=== PATIENT | male | born 1935 | race Caucasian/White ===

== ENCOUNTER 2020-03-13 10:39 | Emergency (ER) | payer OTHER, SELFPAY ==
[2020-03-13 11:31] VITALS: BP 205/94; PULSE 65; RESP 18; TEMP 36.6; O2SAT 96; BMI 27.3
--- NOTE | 2020-03-13 12:28 | XR_ITS ---
WS: [id number] LUMBAR SPINE: 3 VIEWS TECHNIQUE: AP, lateral and L5-S1 spot. HISTORY: back pain COMPARISON: None available. L4 anterolisthesis by 5.5 mm. No fractures. Mild osteopenia. Moderate facet joint arthritis at L4-5 a nd L5-S1. Moderate degenerative disc space narrowing and desiccation at L5-S1. Endplate hypertrophic osteophyte s at all levels. SI joints are symmetric bilaterally. No soft tissue abnormalities. Calcification within the aorta. Mild dilatation of aorta up to 3.3 cm. XR/XR lumbar spine 2-3V* [id number] IMPRESSION: 1. No lumbar spine fracture. 2. L4 anterolisthesis by 5.5 mm. 3. 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 4. No aortic aneurysmal dilatation to 3.3 cm.
--- NOTE | 2020-03-13 12:40 | XR_ITS ---
WS: [id number] Exam: XR pelvis 1-2V* [id number] Date/Time of Exam: 03/13/2020 12:40 PM Reason For Exam: rt posterior hip pain No acute fracture. Moderate degenerative change of both hips. DJD of the SI joints. No sign of bone d estruction. XR/XR pelvis 1-2V* [id number] IMPRESSION: 1. No pelvic fracture or bone destruction. 2. Moderate DJD of both hips.
--- NOTE | 2020-03-13 12:41 | ED_ITS ---
HPI - Back Pain/Injury General: Chief Complaint: Back Pain/Injury Stated Complaint: Pain in lower right back/hip Time Seen by Provider: 03/13/20 12:28 Source: patient Mode of arrival: ambulatory Limitations: no limitations History of Present Illness: HPI Narrative: 84-year-old male patient presents to the emergency department with complaints of right posterior hip pain. He rep orts his [place] Yañez jumped on the door that he was opening causing him to sustain a near fall on 03/08/2020. He reports right posterior hip hit and hard object stopping his fall. He reports pain with bending and twisting. States pain is not improving. He denies radiculopathy symptoms or weakness of the bilateral lower extremities. MD elicited complaint: other (near fall) Timing: intermittent Quality: sharp and aching Location: lumbar spine and right lower back Radiation: none Exacerbating factors: movement Relieving factors: immobilization Context: fall (Near fall) Associated symptoms: Reports no associated symptoms; Deny abdominal pain, chills, difficulty walking, dysuria, fever(s), nausea or vomiting Treatments prior to arrival: cold therapy, heat therapy and NSAIDS Work related injury: No Review of Systems General: Reports: 10 or more systems reviewed and unremarkable except in HPI and below Const: Denies: fever(s), chills or diaphoresis Eyes: Denies: blurry vision or eye redness ENMT: Denies: throat pain, dental pain or disequilibrium Card: Denies: chest pain, palpitations or irregular heart rhythm Resp: Denies: dyspnea, productive cough, non-productive cough or wheezing GI: Denies: abdominal pain, nausea or vomiting : Denies: dysuria Musc: Reports: other (Pain right posterior hip); Denies: neck pain, back pain, muscle cramps or muscle weakness Skin/Breast: Denies: rash or pruritus Neuro: Denies: headache(s), numbness in extremities, weakness in extremities, difficulty walking, confusion or behavioral changes Psych: Denies: anxiety or depression Christoph/Lymph: Denies: easy bruising Physical Exam Const: COMMON NORMALS: no acute distress, patient oriented x3, healthy appearing and alert GENERAL APPEARANCE: cooperative, comfortable and well hydrated HENMT: COMMON NORMALS: normocephalic, Normal external nose present and moist oral mucous membranes HEAD & SCALP: normocephalic NOSE: Normal external nose present Eye: COMMON NORMALS: Equal, round and reactive pupils present and EOMs intact bilaterally GENERAL EYE: appearance normal, both eyes and all related structures PUPIL: Yes Equal, round and reactive pupils present Neck/C-Spine: COMMON NORMALS: full ROM and no lymphadenopathy GENERAL: Yes normal visual inspection and Yes trachea midline CERVICAL SPINE: Yes cervical ROM normal Lymph: LYMPHATIC: no lymphadenopathy noted Chest: COMMONS NORMALS: normal inspection of the chest Resp: COMMON NORMALS: normal respiratory effort and clear to auscultation bilaterally AUSCULTATION: clear to auscultation bilaterally Cardio: COMMON NORMALS: regular rhythm, S1 normal heart sound present and S2 normal heart sound present RHYTHM: regular rhythm HEART SOUNDS: S1 normal heart sound present and S2 normal heart sound present GI: COMMON NORMALS: Soft to palpation and non-tender INSPECTION: Yes normal to inspection PALPATION: Yes Soft to palpation : COMMON NORMALS: Yes no CVA tenderness BLADDER/KIDNEY EXAM: Yes no CVA tenderness Back/Pelvis: COMMON NORMALS: no CVA tenderness, thoracic and lumbar spine normal to inspection, no thoracic nor lumbar tenderness and thoraco-lumbar ROM normal THORACIC SPINE/UPPER BACK: No thoracic spinal tenderness LUMBAR SPINE/LOWER BACK: No lumbar spinal tenderness and Yes straight leg raise positive right SACROILIAC JOINTS: Yes SI joint(s) abnormal SI joint details: tender to palpation (Right) SACRUM: no ecchymosis COCCYX: no swelling Extremity: COMMON NORMALS: normal to inspection and capillary refill normal Neuro: COMMON NORMALS: patient oriented x3 and no focal motor deficits SENSORIUM/ORIENTATION: Yes alert SPEECH: speech normal GAIT: Yes Normal gait present MOTOR EXAM: 5/5 motor strength present throughout Psych: COMMON NORMALS: mental status grossly normal, Normal thought process present, cooperative, normal affect, speech normal and activity/motor behavior normal ACTIVITY/MOTOR BEHAVIOR: Yes appropriate eye contact SPEECH: Yes normal speech THOUGHT PROCESS: Normal thought process present Skin: COMMON NORMALS: no rashes or lesions noted and turgor normal GENERAL SKIN EXAM: no rashes or lesions noted and turgor normal Course Vital Signs: Vital signs: Vital Signs Temperature 97.9 F 03/13/20 11:31 Pulse Rate 71 03/13/20 13:32 Respiratory Rate 14 03/13/20 13:32 Blood Pressure 166/92 03/13/20 13:32 Pulse Oximetry 95 03/13/20 13:32 MDM - Back Pain/Injury Imaging Data^: Xray Ortho: Radiologist's impression: [facility] [address] [place] [id number] XRay Report Signed Patient: Cristian Rodriguez Unit #: [id number] : 1935 Age/Sex: 84 / M ADM Date: 03/13/20 Loc: ER Room/Bed: Attending Dr: Ordering Provider/Ordering MD: Bertha Fuentes Date of Service: 03/13/20 Procedure(s): XR pelvis 1-2V* [id number] Accession Number(s): [id number] Report Number: [id number] WS: [id number] Exam: XR pelvis 1-2V* [id number] Date/Time of Exam: 03/13/2020 12:40 PM Reason For Exam: rt posterior hip pain No acute fracture. Moderate degenerative change of both hips. DJD of the SI joints. No sign of bone destruction. XR/XR pelvis 1-2V* [id number] IMPRESSION: 1. No pelvic fracture or bone destruction. 2. Moderate DJD of both hips. Dictated By: Good Palma DO Signed By: Good Palma DO Signed Date/Time: 03/13/20 1256 DD/ 1255 Other Imaging: Radiologist's impression: [facility] [address] [place] [id number] XRay Report Signed Patient: Cristian Rodriguez Unit #: [id number] : 1935 Ac ct#:[id number] Age/Sex: 84 / M ADM Date: 03/13/20 Loc: ER Room/Bed: Attending Dr: Ordering Provider/Ordering MD: Bertha Fuentes Date of Service: 03/13/20 Procedure(s): XR lumbar spine 2-3V* [id number] Accession Number(s): [id number] Report Number: [id number] WS: [id number] LUMBAR SPINE: 3 VIEWS TECHNIQUE: AP, lateral and L5-S1 spot. HISTORY: back pain COMPARISON: None available. L4 anterolisthesis by 5.5 mm. No fractures. Mild osteopenia. Moderate facet joint arthritis at L4-5 and L5-S1. Moderate degenerative disc space narrowing and desiccation at L5-S1. Endplate hypertrophic osteophytes at all levels. SI joints are symmetric bilaterally. No soft tissue abnormalities. Calcification within the aorta. Mild dilatation of aorta up to 3.3 cm. XR/XR lumbar spine 2-3V* [id number] IMPRESSION: 1. No lumbar spine fracture. 2. L4 anterolisthesis by 5.5 mm. 3. 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 4. No aortic aneurysmal dilatation to 3.3 cm. Dictated By: Ronel Lizarraga DO Signed By: Ronel Lizarraga DO Signed Date/Time: 03/13/20 1259 Discharge Plan Discharge Patient Disposition: Home Clinical Impression: Contusion of lower back and pelvis, initial encounter Strain of lumbar region Qualifiers: Encounter type: initial encounter Qualified Code(s): S39.012A - Strain of muscle, fascia and tendon of lower back, initial encounter Condition: Stable Discharge Orders: Discharge ED (Routine); Ordered 03/13/20 Ordered By: Bertha Fuentes Referrals: Blake Chaudhary [Primary Care Provider] - Discharge Diet: Usual diet Discharge Activity: Limit activity as instructed Patient Instructions: Low Back Strain (ED), Acute Low Back Pain (ED), Contusion in Adults (ED) Activity Restrictions/Additional Instructions: Return to the emergency department if you develop inability to feel your leg, leg weakness or worsening pain Cool compresses alternate with warm moist heat several times daily to the affected area to help with pain Take Tylenol or ibuprofen as needed to help with pain Follow-up with your primary care provider this week for further evaluation as further testing may be needed Coding Level of Care Code 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
[2020-03-13 13:32] VITALS: BP 166/92; PULSE 71; RESP 14; O2SAT 95
== END 2020-03-13 14:17 | disposition home or self-care (01) ==
PROVIDERS: Emergency Provider Nurse Practitioner Family; PCP Family Medicine
DX: S30.0XXA Contusion of lower back and pelvis, initial encounter (principal); S39.012A Strain of muscle, fascia and tendon of lower back, initial encounter; W18.40XA Slipping, tripping and stumbling without falling, unspecified, initial encounter
CPT/HCPCS: 12345; 72100; 72170; 99281; 99282

== ENCOUNTER 2020-12-28 13:44 | Outpatient (CLI) | payer OTHER, SELFPAY ==
--- NOTE | 2020-12-28 13:50 | CT_ITS ---
WS: [id number] CT CHEST TECHNIQUE: Contrast enhanced CT of the chest with coronal and sagittal reformatted images. CLINICAL INFORMATION: IRREGULAR CHEST XRAY FOLLOW UP COMPARISON: None. DLP: 866.[address] scans at [facility] use at least one of these dose optimization techniques: automated e xposure control; mA and/or kV adjustment per patient size (includes targeted exams where dose is matc hed to clinical indication); or iterative reconstruction. FINDINGS: Cardiomegaly. Cardiac pacer. Both lungs are well aerated. No acute pulmonary infiltrates. Mild chroni c emphysematous changes. No focal pneumonia or pleural fluid. Small patchy opacity in the right middl e lobe nonspecific but likely infectious or inflammatory. Recommend 3 month follow-up. This measures approximately 10 mm. Well-circumscribed low-attenuation lesion in the anterior mediastinum anterior to the thoracic aorta measuring 1.7 x 3.5 x 6.3 cm AP by transverse by craniocaudal. Hounsfield units consistent with cysti c contents. Normal caliber thoracic aorta. Slightly ectatic ascending thoracic aorta measuring 4.0 cm . Normal caliber descending thoracic aorta. Coronary calcification. No mediastinal or hilar lymphaden opathy. No axillary lymphadenopathy. Diffuse fatty infiltration the liver. 10 mm low-attenuation lesion in the dome of the liver likely he patic cyst or hemangioma but technically indeterminant. Additional faint low-attenuation lesion in th e tip of the right hepatic lobe measuring 11 mm. Small esophageal hiatal hernia. Adrenal glands are n ormal. Fatty atrophy of the pancreas. CT/CT chest w con* [id number] IMPRESSION: 1. Mild chronic emphysematous changes. No focal pneumonia or pleural fluid. 2. Slight hazy groundglass opacity in the right middle lobe measuring 10 mm. T his is nonspecific but most likely infectious or inflammatory in etiology. Issa mmend 3 month follow-up. 3. Well-circumscribed low-attenuation cystic lesion in the anterior mediastinu m anterior to the thoracic aorta measuring 1.7 x 3.5 x 6.3 cm. Differential con siderations include thymic cyst, pericardial cyst, or cystic thymoma. No enhanc ing septations or solid components. RECOMMEND 3 MONTH FOLLOW-UP CONTRAST-ENHANC ED CHEST CT TO CONFIRM STABILITY. 4. Diffuse fatty infiltration liver. 5. Low-attenuation lesions in the liver measuring 10 11 mm nonspecific but lik anuel hepatic cyst or small cavernous hemangiomas. This would be better evaluated with CONTRAST-ENHANCED CT ABDOMEN PELVIS WITH LIVER PROTOCOL. 6. Slightly ectatic ascending thoracic aorta measuring 4.0 CM.
[2020-12-28] MEDS: iohexol 300 mg/mL 100 mL Btl IV (14:12)
== END 2020-12-28 13:45 | disposition home or self-care (01) ==
PROVIDERS: PCP Family Medicine; Visit Provider Family Medicine
DX: R93.89 Abnormal findings on diagnostic imaging of other specified body structures (principal); I77.810 Thoracic aortic ectasia; K76.0 Fatty (change of) liver, not elsewhere classified
CPT/HCPCS: 71260; Q9967

== ENCOUNTER 2021-02-13 10:13 | Outpatient (CLI) | payer OTHER, SELFPAY ==
--- NOTE | 2021-02-13 10:19 | CT_ITS ---
WS: [id number] CT ABDOMEN PELVIS TECHNIQUE: Contrast-enhanced CT of the abdomen and pelvis with coronal and sagittal reformatted image s. CLINICAL INFORMATION: LESION ON LIVER COMPARISON: CT chest December 28, 2020 DLP: 1461.[address] scans at [facility] use at least one of these dose optimization techniques: automated e xposure control; mA and/or kV adjustment per patient size (includes targeted exams where dose is matc hed to clinical indication); or iterative reconstruction. FINDINGS: Mild diffuse fatty infiltration liver. Normal portal vein and splenic vein. A few low-attenuation les ions in the liver likely hepatic cysts or cavernous hemangiomas largest measuring 13 mm. A few of the se are tiny and too small to characterize. Small esophageal hiatal hernia. Adrenal glands are normal. Normal renal parenchymal enhancement. No h ydronephrosis. Small bilateral renal cysts. Normal spleen. Fatty atrophy of the pancreas. Vascular ca lcification. Lung bases are well aerated. Normal caliber abdominal aorta. Slightly aneurysmal infrare nal abdominal aorta measuring 2.8 x 2.7 CM. Fat-containing right inguinal hernia. Heterogeneous enlarged prostate measuring 3.4 x 4.9 CM. Pelvic phleboliths. Normal sigmoid colon. Sigmoid diverticulosis. No evidence of acute diverticulitis. No periaortic or retroperitoneal lymphadenopathy. No pelvic or inguinal lymphadenopathy. Slight grade 1 anterolisthesis L4 on L5. Disc space narrowing throughout the lumbar spine. CT/CT abdomen pelvis w con* [id number] IMPRESSION: 1. Diffuse fatty infiltration liver. 2. A few low-attenuation lesions in the liver compatible with incidental hepat ic cysts or benign cavernous hemangiomas. Largest measures 13 mm. No suspicious liver lesions. 3. Normal renal parenchymal enhancement. No hydronephrosis. Tiny incidental re nal cysts. 4. Small esophageal hiatal hernia. 5. Fat-containing right inguinal hernia. 6. Enlarged heterogeneously enhancing prostate with indentation on the bladder . Recommend correlation PSA. 7. Sigmoid diverticulosis. 8. Slightly aneurysmal infrarenal abdominal aorta measuring 2.8 x 2.7 cm.
[2021-02-13] MEDS: iohexol 300 mg/mL 100 mL Btl IV (10:56)
== END 2021-02-13 10:14 | disposition home or self-care (01) ==
LOC: CT 10:16
PROVIDERS: PCP Family Medicine; Visit Provider Family Medicine
DX: K76.9 Liver disease, unspecified (principal); K76.0 Fatty (change of) liver, not elsewhere classified; I71.4 Abdominal aortic aneurysm, without rupture; K57.30 Diverticulosis of large intestine without perforation or abscess without bleeding; N40.0 Benign prostatic hyperplasia without lower urinary tract symptoms; K40.90 Unilateral inguinal hernia, without obstruction or gangrene, not specified as recurrent; K44.9 Diaphragmatic hernia without obstruction or gangrene
CPT/HCPCS: 74177

== ENCOUNTER → 2021-02-22 15:07 | Outpatient (BNVA) | payer OTHER, SELFPAY | PROVIDERS: PCP Family Medicine; Referring Provider Family Medicine; Visit Provider Surgery | DX: Z20.822 Contact with and (suspected) exposure to COVID-19 (principal); K40.90 Unilateral inguinal hernia, without obstruction or gangrene, not specified as recurrent | CPT/HCPCS: 87635 ==

== ENCOUNTER 2021-02-27 07:48 | Day surgery (SDC) | payer OTHER, SELFPAY ==
[2021-02-26 08:58] VITALS: BMI 26.6
[2021-02-27] VITALS (17 sets, daily range): BP systolic 55–177; BP diastolic 32–96; PULSE 60–67; RESP 12–22; TEMP 36.1–37.1; O2SAT 90–99
[2021-02-27] MEDS: acetaminophen 1,000 MG/100 ML PIGGYBACK 400 MG IV (08:30)
[2021-02-27] MEDS: sodium chloride 0.9% 1,000 ML 30 ML IV (08:30)
--- NOTE | 2021-02-27 08:44 | ECG_ITS ---
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 Measurements Intervals [place] Rate: 64 P: 261 [place]: 187 QRS: -85 QRSD: 189 T: 74 QT: 472 QTc: 487 Interpretive Statements ELECTRONIC ATRIAL PACEMAKER ELECTRONIC VENTRICULAR PACEMAKER ABNORMAL RHYTHM ECG INTERPRETATION BASED ON A DEFAULT AGE OF 40 YEARS No previous ECG available for comparison Electronically Signed On 02-28-2021 0:20:44 [employer] by Casie Funk M.D. [id number] f
--- NOTE | 2021-02-27 08:50 | ANES.PREANE2 ---
Pre-Anesthetic Assessment Pre-Anesthetic Assessment: Height/Weight: Height 1.75 m Weight 81.647 kg Temp Pulse Resp BP Pulse Ox 97.7 F 63 18 172/96 98 02/27/21 08:15 02/27/21 08:15 02/27/21 08:15 02/27/21 08:15 02/27/21 08:15 Preop Diagnosis: Recurrent right groin hernia Proposed Procedure: Operation Date: 02/27/21 09:40 Proposed Procedures p Open Right Inguinal Hernia Repair w/ Mesh 77602 K40.91(Right) - Devang Roque MD Was Beta Colin taken within 24 hours: Yes Was Clonidine taken within 24 hours: N/A Last intake: Intake Last Liquid Date 02/27/21 Last Liquid Time 06:00 Last Solid Date 02/26/21 Last Solid Time 21:00 Social: Social History: No alcohol and No tobacco Exam: Pre-Anes Outpt Exam: alert, oriented x 3, clear to auscultation bilaterally and regular rate & rhythm Airway: Submandibular: WNL Cervical ROM: WNL MP: 2 Dentition: False and Partials CV/HEM: CV/HEM: HTN and PVD GI: GI: GERD Metabolic: Metabolic: Hyperlipidemia Anesthetic Plan: ASA status: 3 Anesthesia: General Risk of > 500 ml blood loss (7ml/kg in children): No Meds/Allergies Current Medications: Current Medications Generic Name Dose Route Start Last Admin Trade Name Freq PRN Reason Stop Dose Admin Sodium Chloride 1,000 mls @ 30 ml s/hr 02/27/21 08:15 02/27/21 08:30 Sodium Chloride 0.9% IV 02/28/21 08:14 30 mls/hr .Q24H [place] Administration PFSH Anesthesia PFSH: Social History Smoking and tobacco status: former smoker Data Anesthesia Cardiac Studies: No Data to Display
--- NOTE | 2021-02-27 09:12 | W.PM.OPSUD ---
Surgery/Procedure H&P Update DATE OF PROCEDURE: February 27, 2021 DATE H&P PERFORMED: 02/22/21 H&P UPDATE INFORMATION: I have reviewed H&P completed within last 30 days, I have examined patient prior to procedure and No changes to prior documentation PREOP DIAGNOSIS: Recurrent right groin hernia PRIMARY INDICATION FOR PROCEDURE: The same PLANNED PROCEDURE: Operation Date: 02/27/21 09:40 Proposed Procedures p Open Right Inguinal Hernia Repair w/ Mesh [id number] K40.91(Right) - Devang Roque MD
[2021-02-27] MEDS: lidocaine 2% INJ 20 mL INJECTION (09:50)
--- NOTE | 2021-02-27 11:02 | P.OP_ITS ---
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 Timeout was done verifying the patient's name/date of /planned procedure destination after the procedure, all were in agreement. SCDs confirmed to be functioning, preoperative antibiotics administered per protocol, and beta sally protocol was confirmed. I started with a left groin incision 1-1/2 finger above the inguinal ligament towards the pubic tubercle, used 15 blade knife skin incision , continued to dissect using Bovie to subcutaneous Reji's down to the external oblique aponeurosis, a large right indirect inguinal hernia was identified, external oblique aponeurosis was then incised using a 10 blade knife, after application of 2 hemostats across sides of the fascia and opened it, right ileo-inguinal nerve was safeguard, I managed to dissect and deliver the right spermatic cord out of the wound, and placed a [place] drain for traction and countertraction, I dissected the spermatic cord and the vas deferens is identified and safeguarded ,as I identified a large right inguinal hernia sac , the hernia sac was totally dissected and was pretty scarred down due to previous surgery until I reached the patulous deep inguinal ring, I opened the hernia sac the contents were viable was a sliding component, and I did apply a pursestring suture with 2-0 silk pop off under direct vision were I tied down and the sac went inside the abdominal cavity and I cut the extra sac and sent it for pathology also there was a lipoma of the cord that was excised and sent out for pathology, an extra 2-0 silk was applied at the stump of the sac safeguarding the contents. Attention was now deviated to mesh placement , using polypropylene mesh system was applied tension-free(X large size), a cone was applied at the deep inguinal ring stabilized by silk sutures 2/0, and interrupted 2-0 silk sutures for invagination of the fascia transversalis as it was attenuated. Followed by a sheet of mesh was applied onto the floor of the posterior wall of the right inguinal canal and anchored medially to the pubic tubercle then inferiorly to the underlying surface of the inguinal ligament and superiorly to the internal oblique aponeurosis using some sutures 2/0, both limbs of the mesh encircled the exit of the cord at the deep inguinal ring, and stitched down. The cord maintained to be in good position thorough irrigation of the wound w as done with normal saline and closure of the external oblique aponeurosis was done by O Vicryl, followed by approximation of Reji's fascia by 2-0 Vicryl then 3-0 Vicryl then 4/ Monocryl to close the skin, dressing was then applied in the form of Dermabond. Counts of instruments, sponges and needles were completed at the end of the procedure. Scrotal support was then placed I was present for the whole entire procedure Patient tolerated the procedure well and was taken to the recovery area after extubation I was present for the whole entire procedure
--- NOTE | 2021-02-27 12:37 | SUR.PHASEII ---
patient to room from PACU placed on monitor BP 55/32. Patient complaint of just being sleepy. placed patient in trendelenburg opened fluids and called Dr. Mir. 1215 Dr. mir in BP 77/56. Dr. Mir giving albumin and Calcium. 1230 Patient bp 134/62 and feeling better.
--- NOTE | 2021-02-27 12:52 | SUR.PHASEII ---
Albumin in. Patient blood pressure is know 102/60.
--- NOTE | 2021-02-27 13:21 | ANE.PACU2 ---
Inpatient post-anesthesia follow up: Airway intact: Yes Vital signs: Temperature 97.8 F Pulse Rate 62 Respiratory Rate 17 Blood Pressure 109/68 Pulse Oximetry 98 Oxygen Delivery Me thod Room Air Oxygen Flow Rate 10 Fraction of Inspir ed Oxygen Hydration adequate: Yes Nausea and vomiting: No Pain level: 2 Mental status: Baseline
--- NOTE | 2021-02-27 15:16 | SUR.PREOP ---
pacu nurse stated patient did void while in recovery
== END 2021-02-27 15:16 | disposition home or self-care (01) ==
PROVIDERS: PCP Family Medicine; Visit Provider Surgery
PROC: (CPT 49520; principal; 2021-02-27 09:35)
DX: K40.91 Unilateral inguinal hernia, without obstruction or gangrene, recurrent (principal); D17.6 Benign lipomatous neoplasm of spermatic cord; I10 Essential (primary) hypertension; E78.5 Hyperlipidemia, unspecified; Z87.891 Personal history of nicotine dependence
CPT/HCPCS: 49520; 88302; 88304; 93005; 96365; J0690; J1100; J2405; J2704; J2710; J3010; J3490; J7030; P9041

== ENCOUNTER → 2021-08-22 14:13 | Outpatient (BNVA) | payer OTHER, SELFPAY | PROVIDERS: PCP Family Medicine; Visit Provider Internal Medicine Cardiovascular Disease | DX: I25.10 Atherosclerotic heart disease of native coronary artery without angina pectoris (principal); I71.2 Thoracic aortic aneurysm, without rupture; I10 Essential (primary) hypertension; R06.02 Shortness of breath; E78.5 Hyperlipidemia, unspecified; Z87.891 Personal history of nicotine dependence | CPT/HCPCS: 93005; 99204 ==

== ENCOUNTER 2021-09-07 06:59 | Outpatient (CLI) | payer OTHER, SELFPAY ==
[2021-09-07 07:08] VITALS: BMI 27.4
--- NOTE | 2021-09-07 07:28 | NMCV_ITS ---
NM kane perf SPECT r/s* [id number] Cristian Rodriguez Age: 86 Gender: M : 1935 Exam Date: 09/07/2021 08:37 Ordering Phys: Casie Funk MD ([email or web address]) Technologist: JOSE Figueroa Exam Location: [facility] Indications: DYSPNEA ON EXERTION STRESS TEST [facility] IMAGE PROTOCOL Rest/Stress 1 Lexiscan Day Radiopharmaceutical Dose (mCi) Administration Site Administered by Rest: Tc-99m 10.8 IV JOSE Walters Sestamibi Stress:Tc-99m 32.6 IV JOSE Walters Sestamibi Rest: 07-Sep-2021 60 Discovery 630 Stress: 07-Sep-2021 30 Discovery 630 0.4mg Lexiscan. Images obtained in supine and prone position. SPECT RESULTS Technical Quality: Excellent Raw Data Analysis: Normal Image Corrections: No attenuation or motion correction applied Summed Stress Score: 6 Summed Rest Score: 7 Summed Difference Score: 0 PERFUSION FINDINGS Small to moderate area of moderately decreased tracer uptake was noted in the mid and apical inferior, apical lateral and LV apex. No significant reversibility was noted in these regions. FUNCTIONAL RESULTS (calculated via Gated SPECT) Stress Image LV EF (%): 53 Stress EDV (mL):113 TID: 1 Stress ESV (mL):53 FUNCTIONAL FINDINGS: Segmental wall motion analysis revealing mild hypokinesia of the LV apex IMPRESSIONS 1. Myocardial perfusion imaging revealing small to moderate area of persistent decreased tracer uptake in the inferior and apical regions, suggesting myocardial scarring versus attenuation artifact. 2. Normal LV ejection fraction 53%. 3. LV wall motion analysis revealing mild hypokinesia of the LV apex. 4. Mildly dilated LV cavity with an end-systolic volume of 53 mL. No similar previous studies are available for comparison Dr Casie Funk MD FACC (Electronically Signed) Final Date: 07 September 2021 11:44 S
[2021-09-07] MEDS: regadenoson 0.4 Mg/5 ml Syringe IVP (09:06)
[2021-09-07 09:13] VITALS: BP 138/72; PULSE 62
--- NOTE | 2021-09-07 13:45 | USCV_ITS ---
Cristian Rodriguez Age: 86 Gender: M : 1935 Exam Date: 09/07/2021 09:45 Ordering Phys: Casie Funk MD ([email or web address]) Technologist: Courtney Bianchi Exam Location: [facility] – [place] Indication: PAIRED WITH NM TEST BP: 117 / 80 HR: 65 Rhythm: Sinus Technical Quality: Fair MEASUREMENTS (Male / Female) Normal Values 2D ECHO LV Diastolic Diameter PLAX 4.6 cm 4.2 - 5.9 / 3.9 - 5.3 cm LV Systolic Diameter PLAX 2.4 cm LV Chamber Size 3.4 cm IVS Diastolic Thickness 1.1 cm 0.6 - 1.0 / 0.6 - 0.9 cm IVS Systolic Thickness 1.3 cm LVPW Diastolic Thickness 1.3 cm 0.6 - 1.0 / 0.6 - 0.9 cm LVPW Systolic Thickness 1.7 cm RV Chamber Size 3.4 cm LVOT Diameter 2.1 cm LV Ejection Fraction 2D Teich 78.8 % LV Ejection Fraction MOD 2C 55.1 % LV Ejection Fraction 2C AL 53.4 % LA Diameter 2.5 cm LA Width 3.5 cm LA Height 3.4 cm RA Width 3.1 cm RA Height 3.3 cm Aorta at Sinotubular Diameter 3.5 cm IVC Diameter 1.5 cm M-MODE Aortic Annulus Diameter 4.1 cm LA Ao Ratio MM 0.8 MV E Point Septal Separation 1.0 cm DOPPLER AV Peak Velocity 209.0 cm/s LVOT Peak Velocity 63.0 cm/s AV Area Cont Eq vti 1.3 cm squared AV Area Cont Eq pk 1.1 cm squared MV Area PHT 3.3 cm squared Mitral E to A Ratio 0.8 MV E' Velocity 94.0 cm/s Mitral E to LV E' Septal Ratio 15.5 TR Peak Velocity 228.8 cm/s TR Peak Gradient 20.9 mmHg TR Mean Velocity 172.2 cm/s TR Mean Gradient 13.0 mmHg TR Velocity Time Integral 64.0 cm Right Atrial Pressure 3.0 mmHg Pulmonary Artery Systolic Pressu 23.9 mmHg PV Peak Velocity 77.0 cm/s RV Acceleration Time 0.1 s RV Ejection Time 0.3 s RV AcT/ET 0.3 FINDINGS Left Ventricle Normal left ventricular size with borderline low ejection fraction of 50%. Mild hypokinesis of the LV apex.abnormal septal motion consistent with conduction abnormality. Grade I/IV diastolic dysfunction (abnormal relaxation filling pattern), normal to mildly elevated filling pressures. Right Ventricle The right ventricle is normal in size and function. Right Atrium The right atrium is normal in size. Left Atrium The left atrium is normal in size. Mitral Valve Thickened mitral valve. Aortic Valve Thickened aortic valve. Trace aortic valve regurgitation. Features of aortic valve sclerosis Tricuspid Valve Trace tricuspid valve regurgitation. Pulmonic Valve No gross abnormalities noted Pericardium Normal pericardium without effusion. Aorta Normal ascending aorta dimension. IVC Normal size and collapsibility CONCLUSIONS Normal left ventricular size with borderline low ejection fraction of 50%. Mild hypokinesis of the LV apex.abnormal septal motion consistent with conduction abnormality. Grade I/IV diastolic dysfunction (abnormal relaxation filling pattern), normal to mildly elevated filling pressures. Thickened aortic and mitral valves. Trace aortic valve regurgitation. Features of aortic valve sclerosis. Trace tricuspid valve regurgitation. Estimated pulmonary artery peak systolic pressure 24 mmHg There is no pericardial effusion. There are no intracardiac masses. No similar previous studies are available for comparison Dr Casie Funk MD [facility] (Electronically Signed) Final Date: 10 September 2021 09:01 S
== END 2021-09-07 07:00 | disposition home or self-care (01) ==
LOC: CDL 07:02
PROVIDERS: PCP Family Medicine; Visit Provider Internal Medicine Cardiovascular Disease
DX: R07.9 Chest pain, unspecified (principal); I50.20 Unspecified systolic (congestive) heart failure; I50.30 Unspecified diastolic (congestive) heart failure; I08.0 Rheumatic disorders of both mitral and aortic valves
CPT/HCPCS: 78452; 93017; 93280; 93306; A9500; J2785

== ENCOUNTER 2021-11-12 08:28 | Outpatient (CLI) | payer OTHER, SELFPAY ==
--- NOTE | 2021-11-12 08:39 | CT_ITS ---
WS: [id number] CT CHEST TECHNIQUE: Contrast enhanced CT of the chest with coronal and sagittal reformatted images. CLINICAL INFORMATION: FOLLOW UP CYSTIC LESION IN THE MEDIASTINUM COMPARISON: CT December 28, 2020 DLP: 777.[address] scans at [facility] use at least one of these dose optimization techniques: automated e xposure control; mA and/or kV adjustment per patient size (includes targeted exams where dose is matc hed to clinical indication); or iterative reconstruction. FINDINGS: Mild chronic emphysematous changes. Groundglass opacity in RIGHT upper lobe improved and nearly resol lolita compared to previous. Slight bibasilar atelectasis. Tiny amount of hazy groundglass infiltrate in RIGHT lower lobe posteriorly. No other suspicious intraparenchymal abnormalities. Ectatic ascending thoracic aorta measuring 3.7 cm is unchanged. Mild aortic calcification. Normal pineda iber descending thoracic aorta. Proximal main pulmonary arteries are normal. No mediastinal or hilar lymphadenopathy. Stable cystic lesion anterior mediastinum. Diffuse fatty infiltration liver. Stable hepatic cysts. Adrenal glands are normal. Parenchymal scarri ng RIGHT kidney. LEFT renal cyst measuring 2.6 cm. Adrenal glands are normal. Small esophageal hiatal hernia. No other significant changes compared to previous. Mild thoracic kyphosis. Hypertrophic changes thoracic spine. CT/CT chest w con* [id number] IMPRESSION: 1. 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 Differ ential considerations are unchanged including thymic cyst, pericardial cyst, or cystic thymoma. No enhancing septations or solid components. 2. Previously described hazy ground glass opacity in the RIGHT upper lobe medi ally has essentially resolved. Small amount of new hazy groundglass infiltrate in RIGHT lower lobe posteriorly likely inflammatory. 3. Stable ectatic ascending thoracic aorta measuring 3.7 CM. 4. No other significant changes compared to previous. 5. Small esophageal hiatal hernia.
[2021-11-12 09:24] LABS: Blood Urea Nitrogen 8 mg/dL (8-23)
[2021-11-12] MEDS: iohexol 350 mg/mL 100 mL Btl IV (09:33)
== END 2021-11-12 08:29 | disposition home or self-care (01) ==
LOC: RAD 08:28
PROVIDERS: PCP Family Medicine; Visit Provider Family Medicine
DX: Q34.1 Congenital cyst of mediastinum (principal); M40.294 Other kyphosis, thoracic region; K44.9 Diaphragmatic hernia without obstruction or gangrene; I77.810 Thoracic aortic ectasia
CPT/HCPCS: 71260; 82565; 84520

== ENCOUNTER 2022-01-15 10:32 | Outpatient (CLI) | payer OTHER, SELFPAY ==
--- NOTE | 2022-01-15 11:06 | US_ITS ---
WS: [id number] Complete ABDOMINAL ULTRASOUND HISTORY: ELEVATED LIVER ENZYMES COMPARISON: None available. Liver: 16.2 cm in length. Echogenic liver of marked increased attenuation. Portal veins are not visua lized. Small hepatic cysts with a maximum diameter of 1.2 cm. Portal Vein: Normal hepatopetal flow with monophasic waveform. Gallbladder: Normally distended with no gallstones, wall thickening or pericholecystic fluid. Gallbladder wall thickness: 0.2 cm. Pancreas: Limited visualization. CBD: 0.4 cm. Right kidney: 10.8 cm x 5.2 cm x 5.2 cm. Normal size kidney. No hydronephrosis. No mass. Left kidney: 10.0 cm x 6.9 cm x 4.9 cm. Multiple small cysts. The largest appears to be from the up per pole measuring 3.0 x 3.2 x 3.0 cm. No solid mass or obstruction. Spleen: Normal size and echogenicity. 12.1 cm in length. Abdominal aorta and IVC are within normal limits. No ascites. US/US abdomen complete* [id number] IMPRESSION: 1. Normal gallbladder. 2. Severe hepatic steatosis. No bile duct dilatation. 3. Several small LEFT renal cyst.
== END 2022-01-15 10:33 | disposition home or self-care (01) ==
LOC: RAD 10:34
PROVIDERS: PCP Family Medicine; Visit Provider Family Medicine
DX: R74.8 Abnormal levels of other serum enzymes (principal); K76.0 Fatty (change of) liver, not elsewhere classified; N28.1 Cyst of kidney, acquired
CPT/HCPCS: 76700

== ENCOUNTER → 2022-03-21 09:13 | Outpatient (BNVA) | payer OTHER, SELFPAY | PROVIDERS: PCP Family Medicine; Visit Provider Internal Medicine Cardiovascular Disease | DX: Z45.010 Encounter for checking and testing of cardiac pacemaker pulse generator [battery] (principal) | CPT/HCPCS: 93296 ==

== ENCOUNTER → 2023-07-23 14:34 | Outpatient (BNVA) | payer OTHER, SELFPAY | PROVIDERS: PCP Family Medicine; Visit Provider Internal Medicine | DX: Z45.010 Encounter for checking and testing of cardiac pacemaker pulse generator [battery] (principal) | CPT/HCPCS: 93296 ==